=== PATIENT | female | born 1980 | race Caucasian/White ===

== ENCOUNTER 2025-02-24 08:16 | Emergency (ER) | payer OTHER, SELFPAY ==
[2025-02-24 08:24] VITALS: BP 127/88; PULSE 79; RESP 16; TEMP 36.7; O2SAT 100
--- OUTSIDE RECORDS SUMMARY | 2025-02-24 08:25 | XMS_ITS | Clinical Summary ---
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 0 0 08/15/2013 Active guaiFENesin ER (MUCINEX) 600 mg 12 hr tablet Take 1 tablet by mouth 2 (two) times a day 03/04/2019 Active Active Problems Problem Noted Date Diagnosed Date Ear ache 03/01/2019 Assessment & Plan (03/11/2019 2:27 PM CDT): She has had bilateral ear fullness the past three days or so. It is not a pain as such. It started with a sore throat which is also bilateral. She has not had much in the way of any other symptoms, including no fever, runny nose, sneezing, or cough. She did developed a headache this morning and took an Excedrin Migraine. Exam is completely normal. She probably has a viral sore throat with some eustachian tube dysfunction. We will put her on Afrin nasal spray for five days, and have her take Mucinex. Follow-up later this week or early next week if not improved. If she gets severe pain or fever, she may need antibiotics, and she has been so informed. Sore throat 03/01/2019 Assessment & Plan (03/04/2019 1:55 PM CDT): She has had a sore throat for about three days. It is moderate, but exam is completely unremarkable. There is no exudate or redness. There is no local adenopathy or asymmetry. Most likely this is a viral sore throat and should improve with time. If not, return early for re-evaluation. Migraine without aura and wi thout status migrainosus, not intractable 02/07/2005 Overview (10/13/2016): Migraine Immunizations Immunization Administration Dates Next Due Tdap 03/04/2015 Surgical History Surgery Date Site/Laterality Comments SECTION 07/10/2006 - 07/09/2007 Preeclampsia, HELLP: delivery THERAPEUTIC : Elective therapeutic -D&C Medical History Medical History Date Comments HELLP (hemolytic anemia/elev liver enzymes/low platelets in ) 2006 Details lacking. Preeclampsia , detai ls lacking. Family History Medical History Relation Name Comments Hypertension Father Hypertension; Alcohol abuse Mother Alcoholism; Breast cancer Mother Cervical cancer Sister pre-cancer v cancer (details lacking) Relation Name Status Comments Father Mother Sister Social History Tobacco Use Types Packs/Day Years Used Date Smoking Tobacco: Never Smokeless Tobacco: Never Tobacco Cessation:Counseling Given: Yes Alcohol Use Standard Drinks/Week Comments Yes 0 (1 standard drink = 0.6 oz pur e alcohol) Comments No Sex and Gender Information Value Date Recorded Sex Assigned at Not on file Legal Sex Female 6:31 PM BLACKSMITH ASSISTANT Gender Identity Not on file Sexual Orientation Not on file 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 Not on file Not on file Obstetrics History Para Term AB IAB SAB Ectopic Multiple Livin g Live Births 2 1 0 1 1 1 1 Date Outcome GA Total Labor Labor/2nd/3rd Weight Sex Type Anes PTL Alie A1 A5 Name Clin 1.559 kg (3 lb 7 oz) M CS-Un spec Living AB Last Filed Vital Signs Vital Sign Reading Time Taken Comments Blood Pressure 128/82 07/08/2024 2:57 PM BLACKSMITH ASSISTANT Pulse 77 03/04/2019 1:26 PM CDT Temperature 36.7 C (98.1 F) 03/04/2019 1:26 PM CDT Respiratory Rate - - Oxygen Saturation 98% 03/04/2019 1:26 PM CDT Inhaled Oxygen Concentration - - Weight 56.2 kg (124 lb) 07/08/2024 2:57 PM BLACKSMITH ASSISTANT Height 157.5 cm (5' 2) 07/08/2024 2:57 PM BLACKSMITH ASSISTANT Body Mass Index 22.68 07/08/2024 2:57 PM BLACKSMITH ASSISTANT Plan of Treatment Health Maintenance Due Date Last Done Comments Depression Screening 1981 Hepatitis C Screening 1981 Varicella Vaccines (1 of 2 - 13+ 2-dose series) 1994 Hepatitis B Screening 1999 HPV Vaccines (1 - 3-dose SCDM series) 2008 Covid-19 Vaccine ( season) 2024 08/27/2020, 08/05/2020 Cervical Cancer Screening 07/05/20242022, 07/05/2023, 03/18/2016 DTaP/Tdap/Td Vaccine (2 - Td or Tdap) 03/04/2025 03/04/2015 Influenza Vaccine (#1) 2025 04/08/2021 Regular Well Visit/Exam 18-64 07/08/2025 07/08/2024, 07/05/2023, 07/17/2019, Additional history exists Breast Cancer Screening-Mammogram 07/18/2025 07/18/2024, 07/07/2023 Pneumococcal vaccine <65 Aged Out No longer eligible based on patient's age to complete this topic Procedures Procedure Name Priority Date/Time Associated Diagnosis Comments SCREENING MAMMOGRAM BILATERAL W NEGIN Schedule Routine, Read Routine (OP Routine) 07/18/2024 3:24 PM BLACKSMITH ASSISTANT Encounter for screening mammogram for breast cancer HIGH RISK HPV DNA DETECTION WITH GENOTYPING Routine 07/05/2023 4:02 PM BLACKSMITH ASSISTANT Screening for malignant neoplasm of the cervix from Last 3 Months or Most Recently Relevant to Health Maintenance Results * Screening Mammogram Bilateral W Negin (07/18/2024 3:24 PM BLACKSMITH ASSISTANT) Anatomical Region Laterality Modality Breast Bilateral Mammography 07/18/2024 3:33 PM BLACKSMITH ASSISTANT Impressions 07/18/2024 3:33 PM BLACKSMITH ASSISTANT There is no mammographic evidence of malignancy. A 1 year screening mammogram is recommended. BI-RADS: 2 - Benign. The patient has been or will be contacted. The patient will be entered into a reminder system with a target due date of 1 year for her next mammogram. Electronically signed by: Luca Johnson M.D. Narrative 07/18/2024 3:33 PM BLACKSMITH ASSISTANT EXAMINATION: SCREENING MAMMOGRAM BILATERAL W NEGIN ORDERING HEALTHCARE PROVIDER: RADHA LOMBARDI HISTORY: Routine screening mammography. COMPARISON: 07/07/2023 TECHNIQUE: CC and MLO views of the bilateral breasts were obtained with digital technique using breast tomosynthesis with C view. Computer aided detection was utilized. FINDINGS: DENSITY: The breasts are heterogeneously dense, which may obscure small masses. BREASTS: Previously seen cysts in the right breast appear stable. There are no suspicious masses, suspicious calcifications, or other suspicious findings in either breast. There has been no suspicious interval change. Radha Lombardi MD IMG MAMMO PROCEDURES Final Result * High Risk HPV DNA Detection with Genotyping (Molecular component) (07/05/2023 4:02 PM BLACKSMITH ASSISTANT) HPV HR 16 Not Detected Not Detected SHANTE HANCOCK Comment:Testing performed by : [facility], [address] [place]., [address] HPV HR 18 Not Detected Not Detected SHANTE Comment:Testing performed by : [facility], [address] [facility] [address] HPV HR Non 16/18 Not Detected Not Detected SHANTE Comment: Interpretive Data Nucleic acid amplification for detection of high-risk Human Papilloma virus (HPV) is performed by the Phil Nicole 6800 HPV test. This assay specifically detects HPV-16 and HPV-18 genotypes. The following HPV genotypes are detected as high-risk HPV: HPV-31, 33, 35, ,39, 45, 51, 52, 56, 58, 59, 66, and 68. This assay has been approved by the [place] Food and Drug Administration for detection of HPV in cervical specimens collected by a physician using an endocervical brush/spatula or cervical broom and placed in the ThinPrep Pap Test PreservCyt collection containers. The performance characteristics of this test have been verified by the [facility]ious [facility] laboratory. Correlate with separately reported cytology results, as applicable. Interpretive data last revised 22 Testing performed by: [facility], [address] [facility], [place]., [address] Endocervical 07/05/2023 4:02 PM BLACKSMITH ASSISTANT 07/06/2023 12:06 PM BLACKSMITH ASSISTANT Narrative SHANTE HANCOCK - 07/07/2023 2:23 AM BLACKSMITH ASSISTANT Clinical history and diagnosis->DX Z12.4 Testing type->Screening Last menstrual period (date if known)->06/15/23 Previous negative PAP?->Yes us Radha Lombardi MD LAB BODY FLUIDS AND S TOOLS ORDERABLES Final Result Performing Organization Address City/State/[facility] Co de Phone Number SHANTE [phone] Department [place] [address] from Last 3 Months or Most Recently Relevant to Health Maintenance Insurance [facility] HMO/PPO Address[facility] [address] [place] [address] Care Teams 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
--- NOTE | 2025-02-24 08:37 | ED.SKABFB ---
HPI - Skin/Abscess/Foreign Bdy General Chief complaint: Skin/Abscess/Foreign Body Stated complaint: Rash Time Seen by Provider: 02/24/25 08:25 Source: patient and RN notes reviewed Mode of arrival: ambulatory Limitations: no limitations History of Present Illness HPI narrative: 44-year-old female presents Express Care complaining of rash to her left forearm and right lower leg for approximately 1 week. 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 Patient reports a pruritic rash that is weeping has not gotten better. Patient is unsure she has poison mitzi. Patient has been using calamine lotion without relief. Patient denies any other symptoms. Related Data Allergies Allergy/AdvReac Type Severity Reaction Status Date / Time No Known Allergies Allergy Verified 02/24/25 08:26 Review of Systems Review of Systems: CONSTITUTIONAL: Denies fever, chills, or sweats. EYES: Denies visual changes, redness, or discharge. ENT: Denies rhinorrhea, congestion, sore throat, or otalgia. CARDIOVASCULAR: Denies chest pain, palpitations, or edema. RESPIRATORY: Denies cough or dyspnea. GASTROINTESTINAL: Denies abdominal pain, nausea, vomiting, or diarrhea. GENITOURINARY: Denies dysuria or hematuria. SKIN: Positive for rash and itching. MUSCULOSKELETAL: Denies back pain, joint pain, or myalgia. NEUROLOGIC: Denies headache, numbness, or weakness. PSYCHIATRIC: Denies anxiety or depression. All other systems reviewed are negative, except as documented in HPI. PMFSH Comments At the time of my signature, I reviewed and agree with the nursing past medical, surgical, social, and family history. There is no relevant family history pertinent to the patient complaint. Exam Narrative: GENERAL: This is a well-nourished, well-developed adult, in no apparent distress. They are non ill-appearing, nontoxic appearing. HEAD: normocephalic, atraumatic. EYES: Sclera clear/white. Conjunctiva normal. Vision is grossly intact. Extraocular movements intact EARS: External ears normal, Hearing grossly intact. NOSE: External nose normal THROAT: Mucous membranes moist, NECK: Neck supple, CARDIOVASCULAR: Regular rate and rhythm RESPIRATORY: Respiratory rate normal, respiratory effort nonlabored, no respiratory distress SKIN: Erythematous papular vesicular rash scantly present to the left distal forearm and the right mid tibia/fibula. Clear drainage present. No area of fluctuance, no induration, no surrounding cellulitis. No exudate. Rashes nontender. NEURO: awake, alert, and oriented to person, place and time. There were no obvious focal neurologic abnormalities. EXTREMITIES: No joint tenderness, effusion, or edema noted. Course Course Emergency Course: Portions of this record may have been created with voice recognition software Level of Care: Express Care Visit Vital Signs Vital signs: Vital Signs Temperature 98.1 F 02/24/25 08:24 Pulse Rate 79 02/24/25 08:24 Respiratory Rate 16 02/24/25 08:24 Blood Pressure 127/88 02/24/25 08:24 Pulse Oximetry 100 02/24/25 08:24 Oxygen Delivery Room Air 02/24/25 08:24 Temperature 98.1 F 02/24/25 08:24 Pulse Rate 79 02/24/25 08:24 Respiratory Rate 16 02/24/25 08:24 Blood Pressure 127/88 02/24/25 08:24 Pulse Oximetry 100 02/24/25 08:24 Oxygen Delivery Room Air 02/24/25 08:24 Reviewed MDM - Skin/Abscess/Foreign Bdy MDM Narrative Medical decision making narrative: Patient likely has contact dermatitis likely related to poison mitzi. Will prescribe clobetasol ointment. Discussed physical exam findings. Advised supportive measures and signs/symptoms to go to the ER. Pt is appropriate for outpt treatment and f/u. Differential Diagnosis Differential diagnosis: Likely cellulitis, eczema, insect bites, impetigo, contact dermatitis and other (Poison mitzi) Critical Care Time Critical Care Time Critical Care Time: No Discharge Plan Discharge Clinical Impression: Contact dermatitis Qualifiers: Contact dermatitis type: unspecified Contact dermatitis trigger: unspecified trigger Qualified Code(s): L25.9 - Unspecified contact dermatitis, unspecified cause Patient Disposition: Home Condition: Stable Instructions: Antibiotic Form, Poison Mitzi (ED) Additional Instructions: Use the clobetasol as directed. Do not apply this steroid cream to her face. You may use [id number] Tecnu soap as directed on the bottle to help remove the oils from poison mitzi off your skin. You may use calamine lotion, camphor,, Benadryl cream as needed for itchiness symptoms follow instructions on the bottle. You may also take Zyrtec or Claritin as needed for allergy or itchiness symptoms following instructions on the bottle. Follow-up PCP in 3-5 days. If you develop any worsening redness, swelling, discharge,, fevers, breathing problems, or any other concerns please go to the ER immediately. Patient Language: Bangladeshi Prescriptions: New clobetasol 0.05 % cream 1 applic topical BID 7 Days Qty: 30 0RF Rx Instructions: Apply only to the affected area, do not apply to face. Follow-up/Referrals: UNKNOWN,DOCTOR [Primary Care Provider] - Time of Disposition: 08:35
== END 2025-02-24 08:41 | disposition home or self-care (01) ==
DX: L25.9 Unspecified contact dermatitis, unspecified cause (principal)
CPT/HCPCS: 99203; G0463